=== PATIENT | female | born 1980 | race Caucasian/White ===

== ENCOUNTER → 2023-06-25 17:18 | Outpatient (CLI) | payer OTHER, SELFPAY ==
--- NOTE | 2023-06-25 | DI.MRI.S_ITS ---
PROCEDURE: MR LUMBAR SPINE WO CON INDICATIONS: RADICULOPATHY,LUMBAR REGION TECHNIQUE: Noncontrast sagittal T1 spin echo and T2 fast echo, sagittal STIR, and T2 fast spin echo through the lumbar spine. In cases with scoliosis, additional coronal T2 fast spin echo may be performed. COMPARISON: [facility], CR, XR LUMBAR SPINE 1 VIEW, 03/09/2023, 11:55. FINDINGS: Image quality: Diagnostic. Alignment and Curvature: There is normal bony alignment. Bone Marrow: Marrow is of normal overall signal. No acute vertebral body compression fractures. Spinal Cord: Conus medullaris terminates at the L1 level. Visualized cord demonstrates normal signal and size. Paraspinous Soft Tissues: No paravertebral masses. T12-L1: Normal appearance. L1-L2: Normal appearance. L2-L3: Mild loss of disc height is seen. Loss of disc signal is seen. Mild disc bulge is seen, with a mild central disc protrusion. There is a focal annular fissure seen posteriorly. No neural foraminal narrowing is seen. Minimal central canal narrowing is seen. L3-L4: The disc height and disk signal are well-preserved. Mild to moderate disc bulge is seen. Mild facet joint hypertrophy is seen. There is moderate right-sided and [id number] left-sided neural foraminal narrowing. No central canal narrowing is seen. L4-L5: The disc height is well-preserved. Loss of disc signal is seen at this level. Mild to moderate disc bulge is seen, which is eccentric to the right. There is a right foraminal disc protrusion seen. There is a central annular fissure seen posteriorly. Mild to moderate facet hypertrophy is seen. There is moderate to severe bilateral neural foraminal narrowing seen, with an associated a degree of compression seen upon the exiting nerve roots. Mac row no sent L5-S1: Moderate loss of disc height is seen. Loss of disc signal is seen. Moderate disc bulge is seen, with a central/left disc protrusion. Mass effect can be seen upon the transiting left S1 nerve root. Mild facet joint hypertrophy is seen. There is moderate to severe bilateral neural foraminal narrowing seen, with an associated a degree of compression seen upon the exiting nerve roots. Mild to moderate central canal narrowing is seen. 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 IMPRESSION: Multiple levels of lumbar spine degenerative change can be seen, which are overall worst at L4-L5 and L5-S1. Dictated by: Issa Haynes M.D. on 06/25/2023 at 18:11 Approved by: Issa Haynes M.D. on 06/25/2023 at 18:14
== END ==
PROVIDERS: PCP Naturopath; Referring Provider Physical Medicine & Rehabilitation Pain Medicine; Visit Provider Physical Medicine & Rehabilitation Pain Medicine
DX: M47.26 Other spondylosis with radiculopathy, lumbar region (principal); M47.27 Other spondylosis with radiculopathy, lumbosacral region
CPT/HCPCS: 72148

== ENCOUNTER 2023-09-05 10:07 | Emergency (ER) | payer OTHER, SELFPAY ==
[2023-09-05] VITALS (8 sets, daily range): BP systolic 103–164; BP diastolic 62–94; PULSE 60–72; RESP 18; TEMP 36.1; O2SAT 94–100; BMI 29.0
[2023-09-05 10:45] LABS: Add Manual Diff / Slide Review NO; Basophils Absolute Auto 0 /uL (0-100); Eosinophils Absolute Auto 100 /uL (0-450); Eosinophils Percent Auto 2.9 % (2-4); Hematocrit 39.3 % (36-46); Hemoglobin 13.2 g/dL (12.0-16.0); Lymphocytes Absolute Auto 1500 /uL (1100-4500); Lymphocytes Percent Auto 34.1 % (25-40); Mean Corpuscular HGB Conc 33.5 % (30-36); Mean Corpuscular Hemoglobin 29.6 PG (26-34); Mean Corpuscular Volume 88.4 fL (80-100); Monocytes Absolute Auto 300 /uL (0-900); Monocytes Percent Auto 6.7 % (3-14); Neutrophils Absolute Auto 2400 /uL (1500-7000); Neutrophils Percent Auto 55.3 % (50-75); Platelet Count 117 X10^3/uL (150-400); Red Blood Cell Count 4.45 X10^6/uL (4.0-5.2); Red Cell Distribution Width 13.2 % (11.6-14.8); White Blood Cell Count 4.4 X10^3/uL (4.5-11.0)
[2023-09-05 10:55] LABS: Alanine Aminotransferase 42 IU/L (<35); Albumin 4.3 g/dL (3.5-5.0); Albumin Globulin Ratio 1.3 (1.0-2.8); Alkaline Phosphatase 59 U/L (38-126); Aspartate Aminotransferase 34 IU/L (14-36); BUN Creatinine Ratio 13.6 (6-22); Bilirubin Total 0.4 mg/dL (0.2-1.3); Blood Urea Nitrogen 9 mg/dL (7-17); Calcium 8.8 mg/dL (8.4-10.2); Carbon Dioxide 27 mmol/L (22-32); Chloride 107 mmol/L (98-107); Estimated Glomerular Filt Rate > 60 mL/min (>60); Globulin 3.3 g/dL (1.7-4.1); Glucose 123 mg/dL (70-100); HEMOLYSIS < 15 (0-50); Lipase 298 U/L (23-300); Sodium 140 mmol/L (137-145); Total Protein 7.6 g/dL (6.3-8.2)
--- NOTE | 2023-09-05 11:19 | PC.NURSE ---
Chronic nausea/vomiting. States she does not use marijuana, weight loss medication, or any new medications. Pt states she tried cutting out wheat for a couple weeks but her symptoms did not improve. 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
--- NOTE | 2023-09-05 11:34 | ED.NAVMDI ---
HPI - Nausea/Vomiting/Diarrhea General Chief complaint: Nausea/Vomiting/Diarrhea Stated complaint: nauseaous Time Seen by Provider: 09/05/23 11:30 Source: patient and family Mode of arrival: Ambulatory History of Present Illness HPI Narrative: 43-year-old female with history of chronic back pain on gabapentin, patient has had intermittent abdominal with nausea vomiting and sometimes diarrhea been going on for several months. Patient states episodes began with nausea, sometimes she can stay them off was doses Zofran. Sometimes not. She will start to develop abdominal pain she describes as generalized and then have nausea, vomiting and then occasionally diarrhea. She states the emesis can be anything from the food she is eaten to clear, she has not had any black or blood in her emesis no coffee-ground emesis. Stools can sometimes be diarrhea like but not always. Symptoms typically last about 12-24 hours and then resolves. She states getting a bath that is warm can be helpful along with Zofran and she will sometimes take diphenhydramine to make her sleepy to ride it out. She denies any urinary symptoms no dysuria urgency or frequency. No new flank pain. No new vaginal bleeding or discharge. She does have some chronic low back pain and states she has a known cyst in her lower back as well as degenerative changes she was why she takes the gabapentin. She has seen her primary care, she has had 1 visit with the PA with Gastroenterology in his scheduled for a scope. She has not had any prior imaging. She presents today because symptoms have been lasting a little bit longer and more intense than typical. She states no prior surgeries. No known drug allergies. Denies tobacco, no regular alcohol, occasional marijuana edible but she states rarely, no other recreational drugs. Related Data Previous Rx's Medication Instructions Recorded metoclopramide HCl 10 mg tablet 10 mg PO Q6H PRN nausea and 09/05/23 (Reglan) vomiting #10 tabs Allergies Allergy/AdvReac Type Severity Reaction Status Date / Time adhesive tape AdvReac Blister Verified 09/05/23 10:10 Review of Systems Review of Systems ROS Unobtainable: All systems reviewed & are unremarkable except as noted in HPI and below Patient History Social History Smoking Status: Never smoker Smoking Status: Never smoker alcohol intake frequency: a few times a week Substance Use Type: marijuana Exam Narrative Exam Narrative: GENERAL: Alert and oriented x three, well-appearing female in mild distress HEENT: Head normocephalic, atraumatic, EOMI, pupils reactive, face symmetric, moist mucous membranes NECK: Supple, full range of motion CARDIOVASCULAR: Regular rate and rhythm without murmurs, rubs or gallops. RESPIRATORY: Breath sounds equal bilaterally, no wheezes rales or rhonchi. ABDOMEN: Soft, mild generalized tenderness. Nondistended. Normoactive bowel sounds all 4 quadrants. No guarding or rebound, rigidity, no mass : No CVA tenderness EXTREMITIES: Normal range of motion, no clubbing or edema. Neurovascularly intact NEUROLOGICAL: Cranial nerves II through XII grossly intact. Moving all extremities SKIN: Warm, dry, no petechiae, no rashes or lesions. Initial Vital Signs Initial Vital Signs: Vital Signs Temperature 97 F L 09/05/23 10:11 Pulse Rate 65 09/05/23 10:11 Respiratory Rate 18 09/05/23 10:11 Blood Pressure 164/92 H 09/05/23 10:11 Pulse Oximetry 100 09/05/23 10:11 Oxygen Delivery Method Room Air 09/05/23 10:11 Course Orders Ordered: ED Orders 09/05/23 10:37 Complete Blood Count AUTO DIFF Stat Comprehensive Metabolic Panel Stat Lipase Stat 09/05/23 11:43 US abdomen complete Stat 09/05/23 13:19 CT abdomen pelvis w con Stat Discontinued Medications Diphenhydramine HCl (Diphenhydramine 50 Mg/Ml Vial) 50 mg IV NOW ONE Stop: 09/05/23 11:49 Last Admin: 09/05/23 11:53 Dose: 50 mg Documented By: Sodium Chloride (Normal Saline 0.9%) 1,000 mls @ 1,000 mls/hr IV BOLUS ONE Stop: 09/05/23 12:42 Last Infusion: 09/05/23 13:00 Dose: Infused Documented By: Admin: 09/05/23 11:52 Dose: 1,000 mls/hr Documented By: Ketorolac Tromethamine (Ketorolac 30 Mg/Ml Vial) 15 mg IV NOW ONE Stop: 09/05/23 11:44 Last Admin: 09/05/23 11:52 Dose: 15 mg Documented By: Ondansetron HCl (Ondansetron 4 Mg/2 Ml Inj) 4 mg IV NOW PRN PRN Reason: Nausea And Vomiting Ondansetron HCl (Ondansetron 4 Mg Odt) 4 mg PO NOW PRN PRN Reason: Nausea And Vomiting Ondansetron HCl (Ondansetron 4 Mg/2 Ml Inj) 4 mg IV NOW ONE Stop: 09/05/23 11:44 Last Admin: 09/05/23 12:00 Dose: Not Given Documented By: Vital Signs Vital signs: Vital Signs - 8 hr 09/05/23 11:58 09/05/23 11:59 09/05/23 11:59 Pulse Rate 72 Blood Pressure 155/94 H Pulse Oximetry 94 100 09/05/23 12:00 09/05/23 12:30 09/05/23 12:30 Pulse Rate 69 60 Blood Pressure 112/71 Pulse Oximetry 100 99 09/05/23 13:00 09/05/23 13:00 09/05/23 15:01 Pulse Rate 68 65 Blood Pressure 103/62 Pulse Oximetry 99 95 09/05/23 15:02 09/05/23 15:02 Pulse Rate 65 Blood Pressure 120/72 Pulse Oximetry MDM - Nausea/Vomiting/Diarrhea Lab Data 09/05/23 10:37 09/05/23 10:37 Labs: Lab Results 09/05/23 Range/Units 10:37 WBC 4.4 L (4.5-11.0) X10^3/uL RBC 4.45 (4.0-5.2) X10^6/uL Hgb 13.2 (12.0-16.0) g/dL Hct 39.3 (36-46) % MCV 88.4 (80-100) fL MCH 29.6 (26-34) PG MCHC 33.5 (30-36) % RDW 13.2 (11.6-14.8) % Plt Count 117 L (150-400) X10^3/uL Neut % (Auto) 55.3 (50-75) % Lymph % (Auto) 34.1 (25-40) % [place] % (Auto) 6.7 (3-14) % Eos % (Auto) 2.9 (2-4) % Baso % (Auto) 1.0 (0-2) % Neut # (Auto) 2400 (4130-5093) /uL Lymph # (Auto) 1500 (0816-0372) /uL [place]dwell # (Auto) 300 (0-900) /uL Eos # (Auto) 100 (0-450) /uL Baso # (Auto) 0 (0-100) /uL Sodium 140 (137-145) mmol/L Potassium 4.0 (3.4-5.1) mmol/L Chloride 107 (98-107) mmol/L Carbon Dioxide 27 (22-32) mmol/L BUN 9 (7-17) mg/dL Creatinine 0.66 (0.52-1.04) mg/dL Estimated GFR > 60 (>60) mL/min BUN/Creatinine Ratio 13.6 (6-22) Glucose 123 H (70-100) mg/dL Calcium 8.8 (8.4-10.2) mg/dL Total Bilirubin 0.4 (0.2-1.3) mg/dL AST 34 (14-36) IU/L ALT 42 H (<35) IU/L Alkaline Phosphatase 59 (38-126) U/L Total Protein 7.6 (6.3-8.2) g/dL Albumin 4.3 (3.5-5.0) g/dL Globulin 3.3 (1.7-4.1) g/dL Albumin/Globulin Ratio 1.3 (1.0-2.8) Lipase 298 (23-300) U/L Point of Care Testing Test Results Negative Urine Dip Bedside Urine Glucose Negative Bedside Urine Bilirubin - Negative Bedside Urine Ketone - Negative Urine Specific [place] 1.025 Bedside Urine Occult Blood - Negative Bedside Urine pH 5.5 Bedside Urine Protein - Negative Bedside Urine Urobilinogen - Negative Bedside Urine Nitrite - Negative Bedside Urine Leukocytes - Negative Esterase MDM Narrative Medical decision making narrative: 43-year-old female with intermittent abdominal pain, nausea vomiting sometimes diarrhea who presents with a an episode today. She has been trying Zofran at home and sometimes diphenhydramine without success. White blood cells 4.4, hemoglobin 13.2, platelets of 117. Sodium 140 potassium of 4 chloride 107 CO2 27 BUN 9 creatinine 0.66, glucose of 123, LFTs show ALT of 42, bilirubin AST and lipase are normal. Point of care urine is negative, point of care is negative. Patient's workup is overall reassuring, patient received fluids Toradol and Zofran here in the department. Did obtain abdominal ultrasound she is some generalized tenderness but no other red flag symptoms felt to necessitate CT today. Imaging shows acute abdominal process but questionable left middle pole renal mass measuring 4.2 cm suggest an ultrasound but not recent MR. Discussed with patient she is agreeable to CT imaging, imaging shows no renal masses findings suggest a dromedary hump. Hepatic steatosis with no other acute changes. Patient has follow up with GI plan for scope. Continue with the Zofran and PRN Tylenol/ibuprofen as needed. Patient states sometimes Zofran is not very helpful we will give alternative for antiemetic. Reviewed all findings she is aware of the hepatic steatosis. Reviewed need for follow-up in 3 months to make sure the home on her kidney is stable. But noted that has likely not source of her symptoms. Discharge Plan Departure Patient Disposition: Home Clinical Impression: Vomiting, Abdominal pain Instructions: DI for Vomiting -- Adult Activity Restrictions/Additional Instructions: Follow up with Gastroenterology. Your imaging does not show a mass on the kidney but suggest you may have a dromedary hump of the kidney, it's recommended that you have repeat renal US at 3 months to ensure stability. Do have hepatic steatosis but no other changes on your imaging. You can take medications as prescribed. You can take antiemetic, 1 tablet every 6 hours as needed for nausea. Prescription was sent to [facility] in [place] Please return for fevers, persistent or worsening abdominal pain, persistent vomiting, vomiting blood, black or bloody stools or other new or concerning changes. Prescriptions: New metoclopramide HCl [Reglan] 10 mg tablet 10 mg PO Q6H PRN (Reason: nausea and vomiting) Qty: 10 0RF Referrals: Yanelis Krishna ND [Primary Care Provider] - Stand Alone Forms: Patient Portal/API
--- NOTE | 2023-09-05 11:43 | DI.US.S_ITS ---
PROCEDURE: US ABDOMEN COMPLETE INDICATIONS: intermittent episodies vomiting/abd pain TECHNIQUE: Real-time scanning was performed of the abdominal and retroperitoneal organs, with image documentation. COMPARISON: [facility], MR, MR LUMBAR SPINE WO CON, 06/25/2023, 17:36. FINDINGS: Liver: Liver is normal in size and homogeneous in echotexture. Gallbladder: Is unremarkable without stones or wall thickening or pain on examination. Biliary ducts: Intrahepatic bile ducts are non-dilated. Extrahepatic bile duct caliber measures 3.9 mm. Normal is 6-7 mm or less in diameter, or 10 mm or less post-cholecystectomy. Pancreas: Visualized portions of the pancreas are sonographically normal. Spleen: Spleen is normal in size and homogeneous in echotexture. Kidneys: Kidneys are normal in size and echotexture. Right kidney measures 11.9 cm long; left kidney measures 11.4 cm long. No hydronephrosis or nephrolithiasis. Question of a isoechoic left middle pole mass measuring 4.2 x 3.3 x 3.7 cm. However, relatively recent lumbar MRI does not suggest that a mass is present. Aorta: Visualized aorta is normal in caliber at less than 3 cm. Iliacs: Proximal common iliac arteries are normal in caliber at less than 2.5 cm. IVC: Intrahepatic inferior vena cava is patent. Miscellaneous: No free abdominal fluid. IMPRESSION: 1. No acute abdominal process. 2. Question left middle pole renal mass measuring 4.2 cm. This is suggested on ultrasound but not suggested on the recent MRI. Comment: Recommend CT abdomen with contrast Dictated by: Pio Webb M.D. on 09/05/2023 at 12:59 Approved by: Pio Webb M.D. on 09/05/2023 at 13:02
[2023-09-05] MEDS: KETOROLAC 30 MG/ML VIAL 15 MG IV (11:52)
[2023-09-05] MEDS: SODIUM CHLORIDE 0.9% 1,000 ML 1000 ML IV (11:52)
[2023-09-05] MEDS: diphenhydrAMINE 50 MG/ML VIAL IV (11:53)
--- NOTE | 2023-09-05 13:19 | DI.CT.S_ITS ---
PROCEDURE: CT ABDOMEN PELVIS W CON INDICATIONS: Intermittent nausea vomiting diarrhea, abdominal pain TECHNIQUE: After the administration of intravenous contrast, axial sections acquired from the lung bases to the pubic symphysis. Coronal and sagittal reformats were performed. For radiation dose reduction, the following was used: automated exposure control, adjustment of mA and/or kV according to patient size. COMPARISON: [facility], US, US ABDOMEN COMPLETE, 09/05/2023, 12:17. FINDINGS: Image quality: Diagnostic. Lower Chest: No significant findings. ABDOMEN: Liver: No solid mass. Hepatic steatosis. Gallbladder: No radiopaque gallstones or wall thickening. Biliary ducts: No biliary dilation. Pancreas: No ductal dilation. Spleen: Size is within normal limits. Adrenal Glands: No adrenal nodules. Kidneys and Ureters: No hydronephrosis. No solid mass. No complex renal cystic lesion which requires follow up. Stomach and Bowel: Normal colonic caliber, without significant wall thickening. Normal appendix. Peritoneum: No abnormal intraperitoneal fluid. No free air. Ventral Wall: No significant ventral hernia. Abdominal Nodes: No retroperitoneal or mesenteric adenopathy by size criteria. Vessels: Aorta and inferior vena cava are normal in size. PELVIS: Pelvic Organs: Unremarkable. Bladder: No bladder wall thickening, accounting for underdistention. Pelvic Nodes: No enlarged lymph nodes. Miscellaneous: No inguinal hernias are seen. Bones: No aggressive osseous abnormality. IMPRESSION: 1. No renal masses are identified. Finding on ultrasound is suggestive of a dromedary hump. Recommend three-month follow-up renal ultrasound to ensure stability. 2. Hepatic steatosis. Dictated by: Demetrio Lakhani M.D. on 09/05/2023 at 13:27 Approved by: Demetrio Lakhani M.D. on 09/05/2023 at 13:31
== END 2023-09-05 15:17 | disposition home or self-care (01) ==
PROVIDERS: Emergency Provider Emergency Medicine; PCP Naturopath
DX: R10.9 Unspecified abdominal pain (principal); R11.2 Nausea with vomiting, unspecified
CPT/HCPCS: 36415; 74177; 76700; 80053; 81003; 81025; 83690; 85025; 96361; 96374; 96375; 99284; J1200; J1885; Q9967

== ENCOUNTER → 2024-03-29 07:55 | Outpatient (CLI) | payer OTHER, SELFPAY ==
[2024-03-29 08:20] LABS: Add Manual Diff / Slide Review NO; Basophils Absolute Auto 0 /uL (0-100); Basophils Percent Auto 0.6 % (0-2); Eosinophils Absolute Auto 600 /uL (0-450); Eosinophils Percent Auto 11.4 % (2-4); Hematocrit 41.2 % (36-46); Hemoglobin 13.9 g/dL (12.0-16.0); Lymphocytes Absolute Auto 2700 /uL (1100-4500); Lymphocytes Percent Auto 49.2 % (25-40); Mean Corpuscular HGB Conc 33.7 % (30-36); Mean Corpuscular Hemoglobin 29.8 PG (26-34); Mean Corpuscular Volume 88.3 fL (80-100); Monocytes Absolute Auto 400 /uL (0-900); Monocytes Percent Auto 6.3 % (3-14); Neutrophils Absolute Auto 1800 /uL (1500-7000); Neutrophils Percent Auto 32.5 % (50-75); Platelet Count 128 X10^3/uL (150-400); Red Blood Cell Count 4.67 X10^6/uL (4.0-5.2); Red Cell Distribution Width 13.6 % (11.6-14.8); White Blood Cell Count 5.6 X10^3/uL (4.5-11.0)
[2024-03-29 08:23] LABS: Hemoglobin A1C% w Est Avg Glu 5.1 % (4.0-6.0)
[2024-03-29 08:33] LABS: Alanine Aminotransferase 51 IU/L (<35); Albumin 4.4 g/dL (3.5-5.0); Albumin Globulin Ratio 1.4 (1.0-2.8); Alkaline Phosphatase 59 U/L (38-126); Aspartate Aminotransferase 41 IU/L (14-36); BUN Creatinine Ratio 10.8 (6-22); Bilirubin Total 0.3 mg/dL (0.2-1.3); Blood Urea Nitrogen 9 mg/dL (7-17); Calcium 9.6 mg/dL (8.4-10.2); Carbon Dioxide 26 mmol/L (22-32); Chloride 105 mmol/L (98-107); Cholesterol 230 mg/dL (140-199); Estimated Glomerular Filt Rate > 60 mL/min (>60); Globulin 3.1 g/dL (1.7-4.1); Glucose 91 mg/dL (70-100); HDL Cholesterol 53 mg/dL (40-60); HEMOLYSIS < 15 (0-50); Iron 49 ug/dL (37-170); LDL Cholesterol Calculated 148 mg/dL (<100); Potassium 4.4 mmol/L (3.4-5.1); Sodium 138 mmol/L (137-145); Total Protein 7.5 g/dL (6.3-8.2); Triglycerides 146 mg/dL (35-150)
[2024-03-29 08:48] LABS: Percent Iron Saturation 15 % (15-50); Total Iron Binding Capacity 321 ug/dL (265-497); Transferrin 291 mg/dL (206-381)
[2024-03-29 09:06] LABS: TSH w/ Reflex to FT4 4.44 uIU/mL (0.47-4.68)
[2024-03-29 09:08] LABS: Ferritin 21 ng/mL (6-137)
== END ==
PROVIDERS: PCP Family Medicine; Referring Provider Family Medicine; Visit Provider Family Medicine
DX: I10 Essential (primary) hypertension (principal); E61.1 Iron deficiency; D69.6 Thrombocytopenia, unspecified; R63.5 Abnormal weight gain
CPT/HCPCS: 36415; 80053; 80061; 82728; 83036; 83540; 83550; 84443; 85025

== ENCOUNTER → 2024-05-09 09:16 | Outpatient (CLI) | payer OTHER, SELFPAY ==
--- NOTE | 2024-05-09 09:17 | DI.US.S_ITS ---
PROCEDURE: US ABDOMEN COMPLETE INDICATIONS: FOLLOW-UP LIVER, KIDNEY TECHNIQUE: Real-time scanning was performed of the abdominal and retroperitoneal organs, with image documentation. COMPARISON: [facility], US, US ABDOMEN LIMITED, 12/09/2022, 12:20. [facility], US, US ABDOMEN COMPLETE, 09/05/2023, 12:17. [facility], CT, CT ABDOMEN PELVIS W CON, 09/05/2023, 13:28. FINDINGS: Liver: The liver demonstrates mildly enlarged size. The liver demonstrates generalized moderately increased echogenicity. This decreases ultrasound sensitivity for detection of hepatic masses. Gallbladder: No findings of gallstones or sludge are seen. The gallbladder wall is not thickened, measuring 3 mm or less. No specific pericholecystic fluid is seen. The sonographic Carr sign is negative. Biliary ducts: Intrahepatic bile ducts are non-dilated. Extrahepatic bile duct caliber measures 5 mm. Normal is 6-7 mm or less in diameter, or 10 mm or less post-cholecystectomy. Pancreas: Visualized portions of the pancreas are sonographically normal. Spleen: Spleen is normal in size and homogeneous in echotexture. Kidneys: Kidneys are normal in size and echotexture. Right kidney measures !1 cm long; left kidney measures 11.2 cm long. No hydronephrosis or nephrolithiasis. Along the left mid kidney, there is a 3.6 cm area of cortical prominence. On the prior CT, no mass can be seen at this site. This is attributed to a dromedary hump. Aorta: Visualized aorta is normal in caliber at less than 3 cm. Iliacs: Proximal common iliac arteries are normal in caliber at less than 2.5 cm. IVC: Intrahepatic inferior vena cava is patent. Miscellaneous: No free abdominal fluid. 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 No specific imaging follow-up is recommended. Enlarged, fatty infiltrated liver. Dictated by: Issa Haynes M.D. on 05/09/2024 at 13:34 Approved by: Issa Haynes M.D. on 05/09/2024 at 13:36
== END ==
PROVIDERS: PCP Family Medicine; Referring Provider Family Medicine; Visit Provider Family Medicine
DX: K76.0 Fatty (change of) liver, not elsewhere classified (principal); R93.429 Abnormal radiologic findings on diagnostic imaging of unspecified kidney
CPT/HCPCS: 76700

== ENCOUNTER → 2024-06-13 14:16 | Outpatient (CLI) | payer OTHER, SELFPAY ==
--- NOTE | 2024-06-13 14:17 | DI.MG.S_ITS ---
MM screening mammo BI: 06/13/2024. BI-RADS: 1 CLINICAL: 44-year old female for bilateral screening mammogram. Tyrer-Cuzick lifetime risk of 28.5%. No personal or first-degree family history of breast cancer. Current reported family history of breast cancer: paternal grandmother and maternal aunt. PRIOR EXAMS: No prior examinations available. MAMMOGRAPHY TECHNIQUE: 2D and 3D (tomosynthesis) digital mammographic views obtained, with additional images as needed for full coverage. Current study was also evaluated with a Computer Aided Detection (CAD) system. DENSITY C. The breasts are heterogeneously dense, which may obscure small masses. MAMMOGRAPHY FINDINGS Bilateral: No suspicious mass, asymmetry, microcalcification, or other abnormality seen. IMPRESSION: * No evidence of malignancy. RECOMMENDATIONS Bilateral * According to the Tyrer-Cuzick Risk Assessment Model, based on the information provided your patient has a greater than 20% lifetime risk for developing breast cancer. Consider supplemental screening with breast MRI and participation in a high risk screening program. * Annual screening mammography. OVERALL ASSESSMENT CATEGORY BI-RADS-1: Negative. The [employer] recommends annual screening mammography beginning at age 40 for women with average risk of breast cancer. ELECTRONICALLY SIGNED: Leola Butler M.D. on 06/13/2024 at 04:45:10 PM PT Interpreting Station ID: [id number]
== END ==
PROVIDERS: PCP Family Medicine; Referring Provider Family Medicine; Visit Provider Family Medicine
DX: Z12.31 Encounter for screening mammogram for malignant neoplasm of breast (principal); Z80.3 Family history of malignant neoplasm of breast; R92.333 Mammographic heterogeneous density, bilateral breasts
CPT/HCPCS: 77063; 77067

== ENCOUNTER 2024-07-04 13:45 | Outpatient (RCR) | payer OTHER, SELFPAY ==
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
--- NOTE | 2024-07-06 11:52 | PT-OP ANOTE ---
Pt did not show to her 07/06/24 appointment. Therapuist phoned and left a voicemail noting the no-show, and providing pt with time and date of next scheduled visit.
--- NOTE | 2024-07-18 14:42 | PT-OP ANOTE ---
Pt texted on 07/10/24 and cancelled all appts, family emergency in [place], will call back to reschedule when able. Schedulers sent patient message to PT.
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
== END 2024-10-02 14:52 | disposition home or self-care (01) ==
LOC: PHYS 13:45
PROVIDERS: Family Provider Family Medicine; PCP Family Medicine; Referring Provider Family Medicine; Visit Provider Family Medicine
DX: G89.29 Other chronic pain (principal); M54.2 Cervicalgia
CPT/HCPCS: 97110; 97164; 97535

== ENCOUNTER → 2024-11-10 15:35 | Outpatient (CLI) | payer OTHER, SELFPAY ==
--- NOTE | 2024-11-10 15:37 | DI.RAD.S_ITS ---
PROCEDURE: XR CERVICAL SPINE 4V OR 5V INDICATIONS: neck pain TECHNIQUE: 5 views of the cervical spine acquired. COMPARISON: None. FINDINGS: Bones: Reversal of normal cervical lordosis. No fractures or dislocations to the C7 level. Moderate C5-C6 disc height loss with adjacent endplate sclerosis and anterior osteophytosis. Oblique images demonstrate no bony foraminal stenoses. Soft tissues: No prevertebral soft tissue swelling. IMPRESSION: Degenerative change of the cervical spine without evidence of acute osseous abnormality. Dictated by: Valerio Cavazos M.D. on 11/13/2024 at 6:33 Approved by: Valerio Cavazos M.D. on 11/13/2024 at 6:34
== END ==
PROVIDERS: PCP Family Medicine; Referring Provider Physical Medicine & Rehabilitation; Visit Provider Physical Medicine & Rehabilitation
DX: M47.812 Spondylosis without myelopathy or radiculopathy, cervical region (principal); M54.2 Cervicalgia
CPT/HCPCS: 72050

== ENCOUNTER 2024-11-15 08:09 | Outpatient (CLI) | payer OTHER, SELFPAY ==
[2024-11-15 08:25] VITALS: BP 125/77; PULSE 69; RESP 16; TEMP 36.2; O2SAT 97
[2024-11-15 08:54] VITALS: BP 140/78; PULSE 64; RESP 17; O2SAT 100
[2024-11-15 09:10] VITALS: BP 122/73; PULSE 72; RESP 16; O2SAT 100
[2024-11-15] MEDS: LIDOCAINE 1% (PF) 5 ML INJ (09:10)
--- NOTE | 2024-11-15 12:26 | P.PCN_ITS ---
Date/Time/Diagnoses Date of procedure: 10/11/24 Time of procedure: 08:30 Pre-procedure diagnosis: Lumbosacral radiculopathy Post-procedure diagnosis: same Procedure Notes Procedure: Interlaminar epidural steroid injection L5-S1 Indications: Lumbosacral radiculopathy Physician: Fazal Salinas Total sedation minutes: 0 Complications: none Procedure in detail & Post-procedure care: Patient is here for the planned procedure today as noted. No significant change since the last office visit. For additional clinical scenario please see those office notes. Focused exam: Vital signs reviewed as charted on intake. Gen: Well developed. No acute distress. CV: RRR, no M/R/G Chest: Non-labored breathing, CTAB. Psych: Alert and well-oriented. Mood/Affect: normal. Patient suitable for the planned procedure today: Yes === The following procedure was performed in the office today: Lumbar Epidural Steroid Injection with fluoroscopic guidance - Interlaminar approach (54271) Levels Treated: [L5-S1] Approach: interlaminar Soft tissue: [1% lidocaine 2 mL] Test dose: [1% lidocaine 1 mL] Injectate: 0.75 mL of Depo-Medrol (80mg/mL) in 1.25 mL 1% lidocaine and 1 mL normal saline Fluoroscopy Agent: [Omnipaque-300 1.5 mL] Notes: Right paramedian. 4.5 in 20 gauge Touhy needle utilized and adequate. Preprocedure pain 7/10, postprocedure pain 4/10. Procedure: After discussing the risks, benefits, and alternatives to the pr ocedure, the patient expressed understanding and wished to proceed. The risks include but are not limited to infection, allergic reaction, nerve damage, stroke, paralysis, epidural hematoma, syncope, headache, respiratory or cardiac arrest, spinal cord injury, and scar formation. Informed consent was obtained and all patient questions were answered. The patient was brought to the procedure suite and placed in the prone position. A pre-procedural pause was conducted to verify: correct patient identity, procedure to be performed and as applicable, correct side and site, correct patient position, and any special requirements. Using a paramedian approach from the side noted above, the region overlying the target was localized under fluoroscopic visualization and the soft tissues overlying this structure were infiltrated with the anesthetic listed above. With fluoroscopic guidance, a #20 gauge Tuohy needle (unless otherwise noted) was inserted into the epidural space using a paramedian approach. The epidural space was localized utilizing intermittent multiplanar fluoroscopic guidance and loss of resistance technique. After negative aspiration, the contrast noted above was injected into the epidural space and the flow of contrast was observed, confirming epidural spread without evidence of intravascular or intrathecal spread. Multi-planar radiographs were obtained for documentation purposes. A test dose of lidocaine was injected into the above noted epidural space, and the patient was observed for 30-60 seconds. No sensory deficits were reported and normal lower extremity motor function was noted. Subsequently, the injectate as noted above was administered into the level noted above. The patient tolerated the procedure well and was discharged after an appropriate period of observation. If there are any complications, the patient was instructed to call us. The patient is to follow-up with the requesting provider in 2-3 weeks. This note was compiled using voice recognition software and therefore may contain typos. Please contact the author with any questions or concerns.
== END 2024-11-15 09:15 | disposition home or self-care (01) ==
LOC: RAD 08:10
PROVIDERS: PCP Family Medicine; Referring Provider Physical Medicine & Rehabilitation; Visit Provider Physical Medicine & Rehabilitation
DX: M54.17 Radiculopathy, lumbosacral region (principal)
CPT/HCPCS: 62323; J1010